=== PATIENT | female | born 1955 | race Caucasian/White ===

== ENCOUNTER → 2017-01-28 | Outpatient (CLI) | payer BC ==
--- NOTE | 2017-01-28 15:01 | RADIOLOGY REPORT PS360 ---
KNEE-3 VIEWS-RT HISTORY: RT KNEE PAIN,S/P FALL ORDERING PHYSICIAN: Jeffy Tobias MD PATIENT AGE: 61 years COMPARISON: 12/09/2010 FINDINGS: No acute fracture or dislocation is evident. There are mild osteoarthritic changes involving the medial compartment and patellofemoral joint. There are 2 calcific densities projecting over the lateral aspect of the medial joint compartment each measuring approximately 4 mm consistent with loose intra-articular bodies versus osteophytes. Avulsion injuries are felt to be less likely. IMPRESSION: 1. No acute fracture. 2. 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 These have developed since 12/09/2010
== END ==
LOC: RAD 14:29
DX: M25.561 Pain in right knee (principal)